=== PATIENT | male | born 1950 | race Caucasian/White ===

== ENCOUNTER 2018-11-24 20:39 | Observation (INO) | payer MEDICARE, BC ==
[2018-11-24 21:28] LABS: ANION GAP 13.8; CHLORIDE,CL 99 mmol/L (101-111); SODIUM,NA 137 mmol/L (135-145)
--- NOTE | 2018-11-24 22:10 | EDM.PDOC ---
ED HPI GENERAL MEDICAL PROBLEM - General Chief Complaint: Cardiovascular Problem Stated Complaint: BLOOD PRESSURE ETC. Time Seen by Provider: 11/24/18 22:05 Source of Information: Reports: Patient, Family History Limitations: Reports: No Limitations - History of Present Illness INITIAL COMMENTS - FREE TEXT/NARRATIVE: s/p carotid endarterectomy Tuesday @ [facility] just got home yesterday. all day BP been >140s and been up to 180s. did contact [facility] told to increase Rx but not working well. denies CP/SOB/MIKE Frontal Headache Pain Score (Numeric/FACES): 5 - Related Data Allergies Allergy/AdvReac Type Severity Reaction Status Date / Time No Known Allergies Allergy Verified 11/24/18 21:14 Home Meds: Home Meds Fosinopril Sodium 10 mg PO DAILY 07/06/16 [History] Garlic 2,000 mg PO DAILY 07/06/16 [History] Liraglutide [Victoza] 1.8 mg SUBCUT DAILY 07/06/16 [History] SitaGLIPtin [Januvia] 100 mg PO DAILY 07/06/16 [History] metFORMIN HCl [Metformin HCl] 1,000 mg PO ASDIRECTED 07/06/16 [History] Aspirin [Adult Low Dose Aspirin EC] 1 tab PO DAILY 08/20/16 [History] Docusate Sodium [Stool Softener] 2 cap PO BID PRN 08/20/16 [History] Metoprolol Succinate [Toprol XL] 25 mg PO DAILY 08/20/16 [History] Pravastatin [Pravachol] 20 mg PO BEDTIME 08/20/16 [History] Warfarin Sodium [Jantoven] 6 mg PO ASDIRECTED 08/20/16 [History] traMADol HCl [Ultram] 1 tab PO ASDIRECTED 08/20/16 [History] Triamterene/Hydrochlorothiazid [Triamterene-HCTZ 37.5-25 MG] 1 tab PO DAILY [History] Clopidogrel [Plavix] 75 mg PO DAILY 11/24/18 [History] Insulin Aspart [NovoLOG] 10 unit SQ WITHMEALSANDBED 11/24/18 [History] Insulin Detemir [Levemir Flextouch] 40 unit SQ BEDTIME 11/24/18 [History] atorvaSTATin Calcium [Lipitor] 40 mg PO DAILY 11/24/18 [History] cloNIDine [cloNIDine HCl] 0.1 mg PO Q4HR PRN 11/24/18 [History] oxyCODONE 5 mg PO Q4H PRN 11/24/18 [History] Past Medical History HEENT History: Reports: None Cardiovascular History: Reports: ND Endocrine/Metabolic History: Reports: Diabetes, Type II - Past Surgical History HEENT Surgical History: Reports: None Cardiovascular Surgical History: Reports: Coronary Artery Bypass Social & Family History - Family History Family Medical History: Noncontributory - Tobacco Use Smoking Status *Q: Light Tobacco Smoker Years of Tobacco use: 2 Packs/Tins Daily: 0.2 - Caffeine Use Caffeine Use: Reports: None - Recreational Drug Use Recreational Drug Use: No ED ROS GENERAL - Review of Systems Review Of Systems: ROS reveals no pertinent complaints other than HPI. ED EXAM, GENERAL - Physical Exam Exam: See Below Exam Limited By: No Limitations General Appearance: Alert, WD/WN, Mild Distress, Other (upset) Ears: Hearing Grossly Normal Throat/Mouth: Normal Voice, No Airway Compromise Head: Atraumatic Neck: Non-Tender, Full Range of Motion, Other (left post-op site healing well, wihtout s/s cellulitis or excress swelling) Respiratory/Chest: No Respiratory Distress Cardiovascular: Regular Rate, Rhythm GI/Abdominal: Soft, Non-Tender Neurological: Alert, Oriented, Normal Cognition, Normal Gait, No Motor/Sensory Deficits Psychiatric: Flat Affect Skin Exam: Warm, Dry, Normal Color Lymphatic: No Adenopathy Course - Vital Signs Text/Narrative:: discussed with Dr Weaver who kindly admitted pt to observation. Last Recorded V/S: Last Vital Signs Temp 36.5 C 11/24/18 21:13 Pulse 94 11/24/18 21:13 Resp 18 11/24/18 21:13 BP 139/77 11/24/18 21:13 Pulse Ox 97 11/24/18 21:13 - Orders/Labs/Meds Orders: Active Orders 24 hr Category Date Time Status EKG Documentation Completion [RC] STAT Care 11/24/18 20:56 Active Labs: Laboratory Tests 11/24/18 11/24/18 Range/Units 20:55 20:55 WBC 9.6 (5.0-10.0) 10^3/uL RBC 4.51 L (4.6-6.2) 10^6/uL Hgb 13.3 L (14.0-18.0) g/dL Hct 40.1 (40.0-54.0) % MCV 88.9 (80-100) fL MCH 29.5 (27.0-34.0) pg MCHC 33.2 (33.0-35.0) g/dL Plt Count 195 (150-450) 10^3/uL Neut % (Auto) 61.7 (42.2-75.2) % Lymph % (Auto) 23.4 (20.5-50.1) % [place] % (Auto) 12.7 H (2-8) % Eos % (Auto) 2.0 (1.0-3.0) % Baso % (Auto) 0.2 (0.0-1.0) % Sodium 137 (135-145) mmol/L Potassium 3.8 (3.6-5.0) mmol/L Chloride 99 L (101-111) mmol/L Carbon Dioxide 28.0 (21.0-31.0) mmol/L Anion Gap 13.8 BUN 11 (7-18) mg/dL Creatinine 0.9 (0.6-1.3) mg/dL Est Cr Clr Drug Dosing 76.00 mL/min Estimated GFR (MDRD) > 60 BUN/Creatinine Ratio 12.22 Glucose 122 H (74-105) mg/dL Calcium 9.3 (8.4-10.2) mg/dl Total Bilirubin 1.0 (0.2-1.0) mg/dL AST 25 (10-42) IU/L ALT 16 (10-60) IU/L Alkaline Phosphatase 98 (42-121) IU/L Troponin I 0.01 (0.00-0.08) ng/mL Total Protein 7.4 (6.7-8.2) g/dl Albumin 4.1 (3.2-5.5) g/dl Globulin 3.3 Albumin/Globulin Ratio 1.24 Departure - Departure Time of Disposition: 22:09 Disposition: Refer to Observation Condition: Good Clinical Impression: Uncontrolled hypertension - My Orders Last 24 Hours: My Active Orders 11/24/18 20:56 EKG Documentation Completion [RC] STAT - Assessment/Plan Last 24 Hours: My Active Orders 11/24/18 20:56 EKG Documentation Completion [RC] STAT
--- NOTE | 2018-11-24 23:09 | PCM.HP ---
H&P History of Present Illness - General Date of Service: 11/24/18 Admit Problem/Dx: Admission Diagnosis/Problem Admission Diagnosis/Problem Hypertension - History of Present Illness Initial Comments - Free Text/Narative: 67-year-old the male with past medical history of coronary artery disease s/p CABG, essential hypertension, Type 2 diabetes mellitus, bilateral carotid artery stenosis s/p after endarterectomy on 11/21/18 at [facility] who presented to emergency room for elevated blood pressure. Patient was discharged from my [facility] on 11/22/18 however they arrived home yesterday. Patient had no concern and told this morning when he woke up at 4 AM with pounding headache on the left side describing it "could feel heart beating in ears" he took his Toprol 25 mg and at 6 AM blood pressure was 210/110 and pulse 95. Family spoke with Dr. Parsons at [facility] who ordered additional Toprol 25 mg at 7:20 AM. At 8:20 AM blood pressure was 211/123. He went and saw his primary care provider in [facility] and blood pressure was 176/103 at 10:30 AM. He took clonidine 0.1 mg and 20 mg of Lasix. One hour later blood pressure dropped to 120/80. At 6:30 PM his blood pressure went up to 204/110 and pulse 105. Family spoke to Dr. Krueger from my clinic who told him to take clonidine 0.1 mg and recheck systolic blood pressure in 30 minutes and to go to ER if greater than 150. Blood pressure was 168/94 so he came to emergency room. Patient admitted right eye blurry vision when blood pressure was elevated. He said he has been having the same blurry vision on and off for the past years. He said the blurry vision today was not more than usual. Now is back to normal. He has raspy voice which he had when he left the hospital and was told it was because of the intubation. He denies increase in the swelling of his left sided neck. He denies any other symptoms or concerns. He denies slurred speech, confusion, dizziness, facial drooping, unilateral weakness/numbness/tingling, upper respiratory symptoms, fever, chills, nausea, vomiting, chest pain, shortness breath, abdominal pain, diarrhea, urinary symptoms, lower extremities edema, rash, any other symptoms or concern Frontal Headache Pain Score (Numeric/FACES): 5 - Related Data Allergies/Adverse Reactions: Allergies Allergy/AdvReac Type Severity Reaction Status Date / Time No Known Allergies Allergy Verified 11/24/18 22:34 Home Medications: Home Meds Fosinopril Sodium 10 mg PO DAILY 07/06/16 [History] Garlic 2,000 mg PO DAILY 07/06/16 [History] metFORMIN HCl [Metformin HCl] 1,000 mg PO BID 07/06/16 [History] Aspirin [Adult Low Dose Aspirin EC] 81 mg PO DAILY 08/20/16 [History] Metoprolol Succinate [Toprol XL] 25 mg PO BID 08/20/16 [History] Clopidogrel [Plavix] 75 mg PO DAILY 11/24/18 [History] Insulin Aspart [NovoLOG] 10 unit SQ WITHMEALSANDBED 11/24/18 [History] Insulin Detemir [Levemir Flextouch] 40 unit SQ BEDTIME 11/24/18 [History] atorvaSTATin Calcium [Lipitor] 40 mg PO DAILY 11/24/18 [History] oxyCODONE 5 mg PO Q4H PRN 11/24/18 [History] Past Medical History HEENT History: Reports: None Cardiovascular History: Reports: [place] Endocrine/Metabolic History: Reports: Diabetes, Type II - Past Surgical History HEENT Surgical History: Reports: None Cardiovascular Surgical History: Reports: Coronary Artery Bypass Social & Family History - Family History Family Medical History: Noncontributory - Tobacco Use Smoking Status *Q: Light Tobacco Smoker Years of Tobacco use: 2 Packs/Tins Daily: 0.2 - Caffeine Use Caffeine Use: Reports: None - Recreational Drug Use Recreational Drug Use: No H&P Review of Systems - Review of Systems: Review Of Systems: ROS reveals no pertinent complaints other than HPI. Exam - Exam Exam: See Below - Vital Signs Vital Signs: Last Vital Signs Temp 36.5 C 11/24/18 21:13 Pulse 94 11/24/18 21:13 Resp 18 11/24/18 21:13 BP 139/77 11/24/18 21:13 Pulse Ox 97 11/24/18 21:13 Weight: 95.799 kg - Exam General: Alert, Oriented, Cooperative, Mild Distress (from neck pain), Other ( He has hoarse voice otherwise normal speech). No: Severe Distress, Sedated, Lethargic, Obtunded HEENT: Conjunctiva Clear, EACs Clear, EOMI, Hearing Intact, Mucosa Moist & Jacobus , Nares Patent, Normal Nasal Septum, Posterior Pharynx Clear, Pupils Equal, Other (Patent throat.), PERRLA Neck: Trachea Midline, Other (Patient has limited range of motion due to swelling and pain. Left-sided dressing is clean/dry/intact. He has appropriate post surgical swelling. No erythema or signs of infection. I do not appreciate pulsatile fluctuation or induration.). No: JVD Lungs: Clear to Auscultation, Normal Respiratory Effort. No: Decreased Breath Sounds, Crackles, Rales, Rhonchi, Rub, Stridor, Wheezing Cardiovascular: Regular Rate, Regular Rhythm, Normal S1, Normal S2 GI/Abdominal Exam: Normal Bowel Sounds, Soft, Non-Tender, No Organomegaly, No Distention, No Abnormal Bruit, No Mass (Male) Exam: Deferred Rectal (Males) Exam: Deferred Back Exam: Normal Inspection, Full Range of Motion. No: CVA Tenderness (L), CVA Tenderness (R) Extremities: Normal Inspection, Normal Range of Motion, Non-Tender, No Pedal Edema, Normal Capillary Refill Skin: Warm, Dry, Intact Neurological: Cranial Nerves Intact, Strength Equal Bilateral, Normal Gait, Normal Speech (Other than hoarseness), Normal Tone. No: Focal Deficit Neuro Extensive - Mental Status: Alert, Oriented x3, Normal Mood/Affect, Normal Cognition Psychiatric: Alert, Normal Affect, Normal Mood - Patient Data Lab Results Last 24 hrs: Laboratory Results - last 24 hr 11/24/18 11/24/18 Range/Units 20:55 20:55 WBC 9.6 (5.0-10.0) 10^3/uL RBC 4.51 L (4.6-6.2) 10^6/uL Hgb 13.3 L (14.0-18.0) g/dL Hct 40.1 (40.0-54.0) % MCV 88.9 (80-100) fL MCH 29.5 (27.0-34.0) pg MCHC 33.2 (33.0-35.0) g/dL Plt Count 195 (150-450) 10^3/uL Neut % (Auto) 61.7 (42.2-75.2) % Lymph % (Auto) 23.4 (20.5-50.1) % [place] % (Auto) 12.7 H (2-8) % Eos % (Auto) 2.0 (1.0-3.0) % Baso % (Auto) 0.2 (0.0-1.0) % Sodium 137 (135-145) mmol/L Potassium 3.8 (3.6-5.0) mmol/L Chloride 99 L (101-111) mmol/L Carbon Dioxide 28.0 (21.0-31.0) mmol/L Anion Gap 13.8 BUN 11 (7-18) mg/dL Creatinine 0.9 (0.6-1.3) mg/dL Est Cr Clr Drug Dosing 76.00 mL/min Estimated GFR (MDRD) > 60 BUN/Creatinine Ratio 12.22 Glucose 122 H (74-105) mg/dL Calcium 9.3 (8.4-10.2) mg/dl Total Bilirubin 1.0 (0.2-1.0) mg/dL AST 25 (10-42) IU/L ALT 16 (10-60) IU/L Alkaline Phosphatase 98 (42-121) IU/L Troponin I 0.01 (0.00-0.08) ng/mL Total Protein 7.4 (6.7-8.2) g/dl Albumin 4.1 (3.2-5.5) g/dl Globulin 3.3 Albumin/Globulin Ratio 1.24 Result Diagrams: 11/24/18 20:55 11/24/18 20:55 Problem List Initiated/Reviewed/Updated: Yes Orders Last 24hrs: Active Orders 24 hr Category Date Time Status Admission Diagnosis [ADT] Routine ADT 11/24/18 22:06 Ordered Admission Status [Patient Status] [ADT] Routine ADT 11/24/18 22:06 Active EKG Documentation Completion [RC] STAT Care 11/24/18 20:56 Active Assessment/Plan Comment:: 7-year-old the male with past medical history of coronary artery disease s/p CABG, essential hypertension, Type 2 diabetes mellitus, bilateral carotid artery stenosis s/p after endarterectomy on 11/21/18 at [facility] who presented to emergency room for pounding headache and blood pressure of 210/110 earlier this morning. Blood pressure elevation persists despite of antihypertensive medications. Upper arrival to emergency room his blood pressure was 168/89 heart rate 102. But pressure spontaneously dropped to 139/ 77. Then SBP again up 170. On floor blood pressure is 156. Laboratory workup on admission: WBC 9.6. Hemoglobin 13.3. Troponin 0.01. #Hypertensive urgency EKG reveals sinus rhythm with left anterior fascicular block no diagnostic ST or T wave changes. No previous EKG to compare with -Neuro check every 4 hours -We'll increase his Toprol XL from 25 to 50 mg daily. He had 50 mg this morning. -Add amlodipine 5 mg daily. First dose now -Hydralazine 10 mg as needed for systolic blood pressure greater than 160 -I spoke to Dr. Krueger from a clinic who did not believe that patient had complication from that surgery and stated that according to his record his blood pressure was uncontrolled prior to surgery and he needs to have the right antihypertensive regimen. She does not believe that CTA neck would be of help at this time. #Bilateral carotid artery stenosis s/p left endarterectomy on 11/21/18 -Continue aspirin, Plavix, and atorvastatin -Monitor wound closely #Hoarseness From intubation Monitor clinically #Type 2 diabetes mellitus Continue metformin Glargine 40 units at bedtime. He takes Levemir 40 units at home but we don't have Levemir at the hospital -Hold NovoLog 10 units 3 times a day until we see his blood glucose trend -Lispro insulin sliding scale, medium dose regimen -Diabetic diet #Coronary artery disease status post CABG No chest pain Continue Aspirin, Plavix, atorvastatin, metoprolol succinate #CODE STATUS: Full code DVT prophylaxis: GUSTABO nash. He is on aspirin and Plavix as well Plan of care was discussed with patient and his who verbalize understanding agreed with the plan
[2018-11-24] MEDS ORDERED: hydrALAZINE 20 MG/ML SDV IVPUSH PRN (23:31)
[2018-11-24] MEDS ORDERED: oxyCODONE 5 MG Tab PO PRN (23:33)
[2018-11-24] MEDS ORDERED: Morphine 2 MG/ML Syringe IVPUSH PRN (23:41)
[2018-11-24] MEDS ORDERED: Ondansetron 4 MG Tab.DIS PO PRN (23:41)
[2018-11-24] MEDS ORDERED: Polyethylene Glycol 3350 Powder 17 GM Packet PO PRN (23:41)
[2018-11-24] MEDS ORDERED: Ondansetron 4 MG/2 ML SDV IVPUSH PRN (23:41)
[2018-11-24] MEDS ORDERED: Docusate Sodium 100 MG Cap PO PRN (23:41)
[2018-11-25] MEDS: amLODIPine 5 MG Tab PO SCH ×2 (00:04→08:25)
[2018-11-25] MEDS: Insulin Glarg,Human.Rec.Analog 100 UNIT/ML ML SUBCUT SCH ×2 (00:05→21:24)
[2018-11-25] MEDS ORDERED: oxyCODONE 5 MG Tab**OWN MED PO PRN (00:54)
[2018-11-25 06:53] LABS: ANION GAP 12.9; CHLORIDE,CL 101 mmol/L (101-111); SODIUM,NA 138 mmol/L (135-145)
[2018-11-25] MEDS ORDERED: Non-Formulary Medication 1 Each (Insulin Aspart [Novolog] 10 UNIT) SQ SCH (08:00)
[2018-11-25] MEDS ORDERED: metFORMIN 500 MG Tab PO SCH (08:00)
[2018-11-25] MEDS: Clopidogrel 75 MG Tab**OWN MED PO SCH (08:22)
[2018-11-25] MEDS: ATORVASTATIN 40 MG PO SCH (08:22)
[2018-11-25] MEDS: METFORMIN 1000 MG PO SCH ×2 (08:23→17:04)
[2018-11-25] MEDS: Metoprolol Succinate 25 MG Tab.ER**OWN MED PO SCH ×2 (08:23→21:25)
[2018-11-25] MEDS: GARLIC 1000 MG PO SCH (08:25)
[2018-11-25] MEDS: Aspirin 81 MG Tab.Chew**OWN MED PO SCH (08:25)
[2018-11-25] MEDS: Insulin Lispro 100 Units/ML 3 ML Vial SUBCUT SCH ×2 (08:26→17:18)
[2018-11-25] MEDS ORDERED: atorvaSTATin 20 MG Tab PO SCH (09:00)
[2018-11-25] MEDS ORDERED: Clopidogrel 75 MG Tab PO SCH (09:00)
[2018-11-25] MEDS ORDERED: Metoprolol Succinate 25 MG Tab.ER PO SCH (09:00)
[2018-11-25] MEDS ORDERED: GARLIC 2000 MG PO SCH (09:00)
[2018-11-25] MEDS ORDERED: Aspirin 81 MG Tab.EC PO SCH (09:00)
--- NOTE | 2018-11-25 16:41 | PCM.PN ---
- General Info Date of Service: 11/25/18 Admission Dx/Problem (Free Text): Admission Diagnosis/Problem Admission Diagnosis/Problem Hypertension Subjective Update: Patient stated that he is feeling better today he has no complaint. He denies headache, change in vision, facial drooping, difficulty swallowing, unilateral weakness/numbness/tingling, chest pain, shortness breath, palpitation, fever, chills, abdominal pain, diarrhea, urine symptoms, lower extremities edema - Patient Data Vitals - Most Recent: Last Vital Signs Temp 37.2 C 11/25/18 16:00 Pulse 90 11/25/18 16:00 Resp 18 11/25/18 16:00 BP 130/72 11/25/18 16:00 Pulse Ox 98 11/25/18 16:00 Weight - Most Recent: 95.799 kg I&O - Last 24 Hours: Intake & Output 11/25/18 11/25/18 11/25/18 06:59 14:59 22:59 Intake Total 360 Balance 360 Lab Results Last 24 Hours: Laboratory Results - last 24 hr 11/24/18 11/24/18 11/25/18 Range/Units 20:55 20:55 00:09 WBC 9.6 (5.0-10.0) 10^3/uL RBC 4.51 L (4.6-6.2) 10^6/uL Hgb 13.3 L (14.0-18.0) g/dL Hct 40.1 (40.0-54.0) % MCV 88.9 (80-100) fL MCH 29.5 (27.0-34.0) pg MCHC 33.2 (33.0-35.0) g/dL Plt Count 195 (150-450) 10^3/uL Neut % (Auto) 61.7 (42.2-75.2) % Lymph % (Auto) 23.4 (20.5-50.1) % [place] % (Auto) 12.7 H (2-8) % Eos % (Auto) 2.0 (1.0-3.0) % Baso % (Auto) 0.2 (0.0-1.0) % Sodium 137 (135-145) mmol/L Potassium 3.8 (3.6-5.0) mmol/L Chloride 99 L (101-111) mmol/L Carbon Dioxide 28.0 (21.0-31.0) mmol/L Anion Gap 13.8 BUN 11 (7-18) mg/dL Creatinine 0.9 (0.6-1.3) mg/dL Est Cr Clr Drug Dosing 76.00 mL/min Estimated GFR (MDRD) > 60 BUN/Creatinine Ratio 12.22 Glucose 122 H (74-105) mg/dL POC Glucose 103 (70-105) mg/dl Calcium 9.3 (8.4-10.2) mg/dl Magnesium (1.8-2.5) mg/dL Total Bilirubin 1.0 (0.2-1.0) mg/dL AST 25 (10-42) IU/L ALT 16 (10-60) IU/L Alkaline Phosphatase 98 (42-121) IU/L Troponin I 0.01 (0.00-0.08) ng/mL Total Protein 7.4 (6.7-8.2) g/dl Albumin 4.1 (3.2-5.5) g/dl Globulin 3.3 Albumin/Globulin Ratio 1.24 11/25/18 11/25/18 11/25/18 Range/Units 05:50 05:50 07:46 WBC 8.1 (5.0-10.0) 10^3/uL RBC 4.21 L (4.6-6.2) 10^6/uL Hgb 12.4 L (14.0-18.0) g/dL Hct 37.9 L (40.0-54.0) % MCV 90.0 (80-100) fL MCH 29.5 (27.0-34.0) pg MCHC 32.7 L (33.0-35.0) g/dL Plt Count 195 (150-450) 10^3/uL Neut % (Auto) 62.3 (42.2-75.2) % Lymph % (Auto) 24.7 (20.5-50.1) % [place] % (Auto) 11.2 H (2-8) % Eos % (Auto) 1.6 (1.0-3.0) % Baso % (Auto) 0.2 (0.0-1.0) % Sodium 138 (135-145) mmol/L Potassium 3.9 (3.6-5.0) mmol/L Chloride 101 (101-111) mmol/L Carbon Dioxide 28.0 (21.0-31.0) mmol/L Anion Gap 12.9 BUN 11 (7-18) mg/dL Creatinine 0.7 (0.6-1.3) mg/dL Est Cr Clr Drug Dosing 94.43 mL/min Estimated GFR (MDRD) > 60 BUN/Creatinine Ratio Glucose 121 H (74-105) mg/dL POC Glucose 116 H (70-105) mg/dl Calcium 9.2 (8.4-10.2) mg/dl Magnesium 1.6 L (1.8-2.5) mg/dL Total Bilirubin (0.2-1.0) mg/dL AST (10-42) IU/L ALT (10-60) IU/L Alkaline Phosphatase (42-121) IU/L Troponin I 0.01 (0.00-0.08) ng/mL Total Protein (6.7-8.2) g/dl Albumin (3.2-5.5) g/dl Globulin Albumin/Globulin Ratio 11/25/ Range/Units 11:33 WBC (5.0-10.0) 10^3/uL RBC (4.6-6.2) 10^6/uL Hgb (14.0-18.0) g/dL Hct (40.0-54.0) % MCV (80-100) fL MCH (27.0-34.0) pg MCHC (33.0-35.0) g/dL Plt Count (150-450) 10^3/uL Neut % (Auto) (42.2-75.2) % Lymph % (Auto) (20.5-50.1) % [place] % (Auto) (2-8) % Eos % (Auto) (1.0-3.0) % Baso % (Auto) (0.0-1.0) % Sodium (135-145) mmol/L Potassium (3.6-5.0) mmol/L Chloride (101-111) mmol/L Carbon Dioxide (21.0-31.0) mmol/L Anion Gap BUN (7-18) mg/dL Creatinine (0.6-1.3) mg/dL Est Cr Clr Drug Dosing mL/min Estimated GFR (MDRD) BUN/Creatinine Ratio Glucose (74-105) mg/dL POC Glucose 129 H (70-105) mg/dl Calcium (8.4-10.2) mg/dl Magnesium (1.8-2.5) mg/dL Total Bilirubin (0.2-1.0) mg/dL AST (10-42) IU/L ALT (10-60) IU/L Alkaline Phosphatase (42-121) IU/L Troponin I (0.00-0.08) ng/mL Total Protein (6.7-8.2) g/dl Albumin (3.2-5.5) g/dl Globulin Albumin/Globulin Ratio Med Orders - Current: Current Medications Amlodipine Besylate (Norvasc) 5 mg PO DAILY [facility] Last Admin: 11/25/18 08:25 Dose: 5 mg Aspirin (Aspirin) 81 mg PO DAILY [facility] Last Admin: 11/25/18 08:25 Dose: 81 mg Clopidogrel Bisulfate (Plavix) 75 mg PO DAILY [facility] Last Admin: 11/25/18 08:22 Dose: 75 mg Docusate Sodium (Colace) 100 mg PO BID PRN PRN Reason: Constipation Hydralazine HCl (Apresoline) 10 mg IVPUSH Q4H PRN PRN Reason: SBP>160 Insulin Glargine (Lantus) 40 unit SUBCUT BEDTIME [facility] Last Admin: 11/25/18 00:05 Dose: 40 units Insulin Human Lispro (Humalog) 0 unit SUBCUT BIDMEALS [facility]; Protocol Last Admin: 11/25/18 08:26 Dose: Not Given Metoprolol Succinate (Toprol Xl) 50 mg PO BID [facility] Last Admin: 11/25/18 08:23 Dose: 50 mg Morphine Sulfate (Morphine) 2 mg IVPUSH Q2H PRN PRN Reason: Pain (severe 7-10) Ondansetron HCl (Zofran Odt) 4 mg PO Q6H PRN PRN Reason: nausea, able to take PO Ondansetron HCl (Zofran) 4 mg IVPUSH Q6H PRN PRN Reason: Nausea/Vomiting Oxycodone HCl (Oxycodone) 5 mg PO Q4H PRN PRN Reason: Pain (moderate 4-6) Last Admin: 11/25/18 08:21 Dose: 5 mg Patient's Own Medication Atorvastatin 40 Mg 1 each PO DAILY [facility] Last Admin: 11/25/18 08:22 Dose: 1 each Patient's Own Medication Metformin 1000 Mg 1 each PO BIDMEALS [facility] Last Admin: 11/25/18 08:23 Dose: 1 each Patient's Own MedicationGarlic 1000 Mg 2 each PO DAILY [facility] Last Admin: 11/25/18 08:25 Dose: 2 each Polyethylene Glycol (Miralax) 17 gm PO DAILY PRN PRN Reason: Constipation Discontinued Medications Aspirin (Halfprin) 81 mg PO DAILY [facility] Atorvastatin Calcium (Lipitor) 40 mg PO DAILY [facility] Clopidogrel Bisulfate (Plavix) 75 mg PO DAILY [facility] Insulin Glargine (Lantus) 40 unit SUBCUT BEDTIME [facility] Magnesium Oxide (Magnesium Oxide) 1,000 mg PO ONETIME ONE Stop: 11/26/18 11:27 Magnesium Oxide (Magnesium Oxide) 1,000 mg PO ONETIME ONE Stop: 11/25/18 13:31 Last Admin: 11/25/18 14:28 Dose: 1,000 mg Metformin HCl (Glucophage) 1,000 mg PO BIDMEALS [facility] Metoprolol Succinate (Toprol Xl) 50 mg PO BID [facility] Non-Formulary Medication (Insulin Aspart [Novolog]) 10 unit SQ WITHMEALSANDBED [facility] Oxycodone HCl (Oxycodone) 5 mg PO Q4H PRN PRN Reason: Pain (moderate 4-6) Patient's Own MedicationGarlic 2000 Mg 1 each PO DAILY [facility] - Exam General: Alert, Oriented, Cooperative, No Acute Distress. No: Mild Distress, Moderate Distress, Severe Distress, Sedated, Lethargic, Obtunded HEENT: Pupils Equal, Pupils Reactive, EOMI, Mucous Membr. Moist/[place] Neck: Trachea Midline, No JVD, Other (Neck motion and postsurgical wound swelling slightly better. No pulsatile fluctuation or induration. No signs of infection) Lungs: Clear to Auscultation, Normal Respiratory Effort Cardiovascular: Regular Rate, Regular Rhythm GI/Abdominal Exam: Normal Bowel Sounds, Soft, Non-Tender, No Organomegaly, No Distention, No Mass Extremities: Normal Inspection, Normal Range of Motion, Non-Tender, No Pedal Edema, Normal Capillary Refill Skin: Warm, Dry Neurological: No New Focal Deficit Psy/Mental Status: Alert, Normal Affect, Normal Mood - Problem List Review Problem List Initiated/Reviewed/Updated: Yes - My Orders Last 24 Hours: My Active Orders 11/24/18 23:29 Neuro Check [RC] Q4H 11/24/18 23:31 hydrALAZINE [Apresoline] 10 mg IVPUSH Q4H PRN 11/24/18 23:41 Bedrest Bathroom Privileges [RC] ASDIRECTED Oxygen Therapy [RC] PRN VTE/DVT Education [RC] PER UNIT ROUTINE Vital Signs [RC] 00,04,08,12,16,20 Docusate Sodium [Colace] 100 mg PO BID PRN Morphine 2 mg IVPUSH Q2H PRN Ondansetron [Zofran ODT] 4 mg PO Q6H PRN Ondansetron [Zofran] 4 mg IVPUSH Q6H PRN Polyethylene Glycol 3350 [MiraLAX] 17 gm PO DAILY PRN Resuscitation Status Routine 11/24/18 23:42 Intake and Output [RC] QSHIFT Notify Provider Vital Signs [RC] ASDIRECTED 11/24/18 23:45 Insulin Glarg,Human.Rec.Analog [LantUS] 40 unit SUBCUT BEDTIME amLODIPine [Norvasc] 5 mg PO DAILY 11/24/18 23:54 Antiembolic Devices [RC] PER UNIT ROUTINE GUSTABO Hose Substitution [Sequential Compression Device] [OM.PC] Routine 11/24/18 23:56 Accu Check [Blood Glucose Check, Bedside] [RC] QIDACANDBED 11/25/18 00:54 oxyCODONE 5 mg PO Q4H PRN 11/25/18 08:00 Insulin Lispro [HumaLOG] See Protocol SUBCUT BIDMEALS Patient's Own Medication [Ptom] 1 each PO BIDMEALS 11/25/18 09:00 Aspirin 81 mg PO DAILY Clopidogrel [Plavix] 75 mg PO DAILY Metoprolol Succinate [Toprol XL] 50 mg PO BID Patient's Own Medication [Ptom] 1 each PO DAILY Patient's Own Medication [Ptom] 2 each PO DAILY 11/25/18 Breakfast Consistent Carbohydrate Diet [DIET] - Plan Plan:: 7-year-old the male with past medical history of coronary artery disease s/p CABG, essential hypertension, Type 2 diabetes mellitus, bilateral carotid artery stenosis s/p after endarterectomy on 11/21/18 at [facility] who presented to emergency room for pounding headache and blood pressure of 210/110 earlier this morning. Blood pressure elevation persists despite of antihypertensive medications. Upper arrival to emergency room his blood pressure was 168/89 heart rate 102. But pressure spontaneously dropped to 139/ 77. Then SBP again up 170. On floor blood pressure is 156. Laboratory workup on admission: WBC 9.6. Hemoglobin 13.3. Troponin 0.01. #Hypertensive urgency EKG reveals sinus rhythm with left anterior fascicular block no diagnostic ST or T wave changes. No previous EKG to compare with -Neuro check every 8 hours -Continue Toprol XL 50 mg daily. It was increased from 25 mg yesterday -Continue amlodipine 5 mg every morning. He received first dose yesterday night -Hydralazine 10 mg as needed for systolic blood pressure greater than 160 -Patient wants to be discharged home today however he agreed to Continue to monitor blood pressure 1 more day #Hypomagnesemia, mild Magnesium 1.6 -Ordered magnesium oxide 1000 mg orally once -Recheck magnesium level tomorrow #Bilateral carotid artery stenosis s/p left endarterectomy on 11/21/18 -Continue aspirin, Plavix, and atorvastatin -Monitor wound closely #Hoarseness From intubation Monitor clinically #Type 2 diabetes mellitus Continue metformin Glargine 40 units at bedtime. He takes Levemir 40 units at home but we don't have Levemir at the hospital -Continue to hold NovoLog 10 units 3 times a day until we see his blood glucose trend -Lispro insulin sliding scale, medium dose regimen -Diabetic diet #Coronary artery disease status post CABG No chest pain Continue Aspirin, Plavix, atorvastatin, metoprolol succinate #CODE STATUS: Full code DVT prophylaxis: GUSTABO nash. He is on aspirin and Plavix as well Plan of care was discussed with patient and his who verbalize understanding agreed with the plan
[2018-11-25] MEDS ORDERED: INSULIN DETEMIR 40 UNIT SQ SCH (21:00)
[2018-11-25] MEDS ORDERED: Insulin Glarg,Human.Rec.Analog 100 UNIT/ML ML SUBCUT SCH (21:00)
[2018-11-26 06:51] LABS: ANION GAP 14.3; CHLORIDE,CL 102 mmol/L (101-111); SODIUM,NA 141 mmol/L (135-145)
[2018-11-26] MEDS: amLODIPine 5 MG Tab PO SCH (08:35)
[2018-11-26] MEDS: METFORMIN 1000 MG PO SCH (08:35)
[2018-11-26] MEDS: ATORVASTATIN 40 MG PO SCH (08:36)
[2018-11-26] MEDS: Aspirin 81 MG Tab.Chew**OWN MED PO SCH (08:36)
[2018-11-26] MEDS: Metoprolol Succinate 25 MG Tab.ER**OWN MED PO SCH (08:36)
[2018-11-26] MEDS: Clopidogrel 75 MG Tab**OWN MED PO SCH (08:36)
[2018-11-26] MEDS: GARLIC 1000 MG PO SCH (08:36)
[2018-11-26] MEDS: Insulin Lispro 100 Units/ML 3 ML Vial SUBCUT SCH (08:43)
[2018-11-26 11:36] VITALS: BP 135/69; PULSE 79
--- NOTE | 2018-11-26 13:27 | PCM.DCSUM1 ---
Discharge Summary - Hospital Course Free Text/Narrative:: 67-year-old the male with past medical history of coronary artery disease s/p CABG, essential hypertension, Type 2 diabetes mellitus, bilateral carotid artery stenosis s/p after endarterectomy on 11/21/18 at [facility] who presented to emergency room for pounding headache and blood pressure of 210/110 earlier this morning. Blood pressure elevation persists despite of antihypertensive medications. Uppon arrival to emergency room his blood pressure was 168/89 heart rate 102. But pressure spontaneously dropped to 139/ 77. Then SBP again up 170. On floor blood pressure is 156. Laboratory workup on admission: WBC 9.6. Hemoglobin 13.3. Troponin 0.01.EKG reveals sinus rhythm with left anterior fascicular block no diagnostic ST or T wave changes. No previous EKG to compare with. Patient was started on metoprolol succinate 50 mg twice a day and amlodipine 5 mg daily. Patient's systolic blood pressure has been between 134 and 146 and diastolic blood pressure between 65 and 75 and heart rate between 77 and 92. Patient wants to be discharged home. He was advised to continue metoprolol succinate 50 mg twice a day and amlodipine 5 mg every morning and stop any other antihypertensive medications. Otherwise continue the rest of home medications. He was advised to check his blood pressure and heart rate 2 to 3 times a day and examined readings to his appointment with primary care provider in the next 1-3 days Diagnosis: Stroke: No - Discharge Data Discharge Date: 11/26/18 Discharge Disposition: Home, Self-Care 01 Condition: Good - Referral to Home Health Date of Face to Face Encounter: 11/26/18 Primary Care Physician: Gal Sanz MD - Discharge Diagnosis/Problem(s) (1) Uncontrolled hypertension SNOMED Code(s): 27992269, [id number] ICD Code: I10 - ESSENTIAL (PRIMARY) HYPERTENSION Status: Acute Current Visit: No - Patient Instructions Diet: Heart Healthy Diet, Low Sodium Activity: As Tolerated Showering/Bathing: June Shower Notify Provider of: Fever, Increased Pain, Swelling and Redness, Drainage, Nausea and/or Vomiting - Discharge Plan Prescriptions/Med Rec: amLODIPine [Norvasc] 5 mg PO QAM #30 tablet Home Medications: Home Meds Garlic 2,000 mg PO DAILY 07/06/16 [History] metFORMIN HCl [Metformin HCl] 1,000 mg PO BID 07/06/16 [History] Aspirin [Adult Low Dose Aspirin EC] 81 mg PO DAILY 08/20/16 [History] Clopidogrel [Plavix] 75 mg PO DAILY 11/24/18 [History] Insulin Aspart [NovoLOG] 10 unit SQ WITHMEALSANDBED 11/24/18 [History] Insulin Detemir [Levemir Flextouch] 40 unit SQ BEDTIME 11/24/18 [History] atorvaSTATin Calcium [Lipitor] 40 mg PO DAILY 11/24/18 [History] oxyCODONE 5 mg PO Q4H PRN 11/24/18 [History] Metoprolol Succinate [Toprol XL] 50 mg PO BID tab.er 11/26/18 [Rx] amLODIPine [Norvasc] 5 mg PO QAM #30 tablet 11/26/18 [Rx] Patient Handouts: Hypertension, [id number], Amlodipine tablets, Heart Disease Prevention Referrals: Gal Sanz MD [Primary Care Provider] - - Discharge Summary/Plan Comment DC Time >30 min.: No - General Info Date of Service: 11/26/18 Admission Dx/Problem (Free Text: Admission Diagnosis/Problem Admission Diagnosis/Problem Hypertension Subjective Update: Patient stated that he is feeling better today he has no complaint and wants to go home. He denies headache, change in vision, facial drooping, difficulty swallowing, unilateral weakness/numbness/tingling, chest pain, shortness breath , palpitation, fever, chills, abdominal pain, diarrhea, urine symptoms, lower extremities edema - Patient Data Vitals - Most Recent: Last Vital Signs Temp 36.4 C 11/26/18 11:35 Pulse 79 11/26/18 11:35 Resp 18 11/26/18 11:35 BP 135/69 11/26/18 11:35 Pulse Ox 97 11/26/18 11:35 Weight - Most Recent: 95.799 kg I&O - Last 24 hours: Intake & Output 11/25/18 11/26/18 11/26/18 22:59 06:59 14:59 Intake Total 240 250 240 Balance 240 250 240 Lab Results - Last 24 hrs: Laboratory Results - last 24 hr 11/25/18 11/25/18 11/26/18 Range/Units 17:02 21:11 06:18 Sodium 141 (135-145) mmol/L Potassium 4.3 (3.6-5.0) mmol/L Chloride 102 (101-111) mmol/L Carbon Dioxide 29.0 (21.0-31.0) mmol/L Anion Gap 14.3 BUN 13 (7-18) mg/dL Creatinine 0.8 (0.6-1.3) mg/dL Est Cr Clr Drug Dosing 82.63 mL/min Estimated GFR (MDRD) > 60 Glucose 100 (74-105) mg/dL POC Glucose 151 H 138 H (70-105) mg/dl Calcium 9.3 (8.4-10.2) mg/dl Magnesium 1.9 (1.8-2.5) mg/dL 11/26/18 11/26/18 Range/Units 07:44 11:31 Sodium (135-145) mmol/L Potassium (3.6-5.0) mmol/L Chloride (101-111) mmol/L Carbon Dioxide (21.0-31.0) mmol/L Anion Gap BUN (7-18) mg/dL Creatinine (0.6-1.3) mg/dL Est Cr Clr Drug Dosing mL/min Estimated GFR (MDRD) Glucose (74-105) mg/dL POC Glucose 94 134 H (70-105) mg/dl Calcium (8.4-10.2) mg/dl Magnesium (1.8-2.5) mg/dL Med Orders - Current: Current Medications Amlodipine Besylate (Norvasc) 5 mg PO DAILY [facility] Last Admin: 11/26/18 08:35 Dose: 5 mg Aspirin (Aspirin) 81 mg PO DAILY [facility] Last Admin: 11/26/18 08:36 Dose: 81 mg Clopidogrel Bisulfate (Plavix) 75 mg PO DAILY [facility] Last Admin: 11/26/18 08:36 Dose: 75 mg Docusate Sodium (Colace) 100 mg PO BID PRN PRN Reason: Constipation Hydralazine HCl (Apresoline) 10 mg IVPUSH Q4H PRN PRN Reason: SBP>160 Insulin Glargine (Lantus) 40 unit SUBCUT BEDTIME [facility] Last Admin: 11/25/18 21:24 Dose: 40 units Insulin Human Lispro (Humalog) 0 unit SUBCUT BIDMEALS [facility]; Protocol Last Admin: 11/26/18 08:43 Dose: Not Given Metoprolol Succinate (Toprol Xl) 50 mg PO BID [facility] Last Admin: 11/26/18 08:36 Dose: 50 mg Morphine Sulfate (Morphine) 2 mg IVPUSH Q2H PRN PRN Reason: Pain (severe 7-10) Ondansetron HCl (Zofran Odt) 4 mg PO Q6H PRN PRN Reason: nausea, able to take PO Ondansetron HCl (Zofran) 4 mg IVPUSH Q6H PRN PRN Reason: Nausea/Vomiting Oxycodone HCl (Oxycodone) 5 mg PO Q4H PRN PRN Reason: Pain (moderate 4-6) Last Admin: 11/25/18 08:21 Dose: 5 mg Patient's Own Medication Atorvastatin 40 Mg 1 each PO DAILY [facility] Last Admin: 11/26/18 08:36 Dose: 1 each Patient's Own Medication Metformin 1000 Mg 1 each PO BIDMEALS [facility] Last Admin: 11/26/18 08:35 Dose: 1 each Patient's Own MedicationGarlic 1000 Mg 2 each PO DAILY [facility] Last Admin: 11/26/18 08:36 Dose: 2 each Polyethylene Glycol (Miralax) 17 gm PO DAILY PRN PRN Reason: Constipation Discontinued Medications Aspirin (Halfprin) 81 mg PO DAILY [facility] Atorvastatin Calcium (Lipitor) 40 mg PO DAILY [facility] Clopidogrel Bisulfate (Plavix) 75 mg PO DAILY [facility] Insulin Glargine (Lantus) 40 unit SUBCUT BEDTIME [facility] Magnesium Oxide (Magnesium Oxide) 1,000 mg PO ONETIME ONE Stop: 11/26/18 11:27 Magnesium Oxide (Magnesium Oxide) 1,000 mg PO ONETIME ONE Stop: 11/25/18 13:31 Last Admin: 11/25/18 14:28 Dose: 1,000 mg Metformin HCl (Glucophage) 1,000 mg PO BIDMEALS [facility] Metoprolol Succinate (Toprol Xl) 50 mg PO BID [facility] Non-Formulary Medication (Insulin Aspart [Novolog]) 10 unit SQ WITHMEALSANDBED [facility] Oxycodone HCl (Oxycodone) 5 mg PO Q4H PRN PRN Reason: Pain (moderate 4-6) Patient's Own MedicationGarlic 2000 Mg 1 each PO DAILY [facility] - Exam General: Reports: Alert, Oriented, Cooperative, No Acute Distress. Denies: Mild Distress, Moderate Distress, Severe Distress, Sedated, Lethargic, Obtunded HEENT: Reports: Pupils Equal, Pupils Reactive, EOMI, Mucous Membr. Moist/[place] Neck: Reports: Supple, Trachea Midline, No JVD, Other (Improved left neck swelling and range of motion. No pulsatile mass) Lungs: Reports: Clear to Auscultation, Normal Respiratory Effort. Denies: Decreased Breath Sounds, Crackles, Rales, Rhonchi, Rub, Stridor, Wheezing Cardiovascular: Reports: Regular Rate, Regular Rhythm GI/Abdominal Exam: Normal Bowel Sounds, Soft, Non-Tender, No Organomegaly, No Distention (Male) Exam: Deferred Rectal (Males) Exam: Deferred Back Exam: Reports: Normal Inspection, Full Range of Motion Extremities: Normal Inspection, Normal Range of Motion, Non-Tender, No Pedal Edema, Normal Capillary Refill Skin: Reports: Warm, Dry, Intact Neurological: Reports: No New Focal Deficit Psy/Mental Status: Reports: Alert, Normal Affect, Normal Mood
== END 2018-11-26 14:08 | disposition home or self-care (01) ==
LOC: DL.ED 20:39 → DL.MS 22:06 → DL.ED 22:14
PROVIDERS: ADMIT Family Medicine; ATTEND Family Medicine
DX: I10 Essential (primary) hypertension (principal); E11.9 Type 2 diabetes mellitus without complications; I25.10 Atherosclerotic heart disease of native coronary artery without angina pectoris; F17.210 Nicotine dependence, cigarettes, uncomplicated; Z95.1 Presence of aortocoronary bypass graft; Z79.82 Long term (current) use of aspirin; Z79.02 Long term (current) use of antithrombotics/antiplatelets; Z79.4 Long term (current) use of insulin; Z86.79 Personal history of other diseases of the circulatory system; Z98.890 Other specified postprocedural states
CPT/HCPCS: 36415; 80048; 80053; 82962; 83735; 84484; 85025; 93005; 99284; A9270; J1815; G0378